=== PATIENT | female | born 1985 | race Caucasian/White ===

== ENCOUNTER → 2019-02-13 | Outpatient (CLI) | payer OTHER | LOC: COL.RAD 09:45 | DX: G35 Multiple sclerosis (principal); G25.81 Restless legs syndrome; D64.9 Anemia, unspecified | CPT/HCPCS: A9585 ==

== ENCOUNTER → 2019-02-14 | Outpatient (CLI) | payer OTHER | LOC: COL.RAD 09:45 | DX: G35 Multiple sclerosis (principal); G25.81 Restless legs syndrome; D64.9 Anemia, unspecified; R39.15 Urgency of urination; R53.83 Other fatigue | CPT/HCPCS: A9585 ==

== ENCOUNTER → 2019-11-29 | Outpatient (CLI) | payer OTHER | LOC: COL.RAD 11-19 09:00 | DX: G35 Multiple sclerosis (principal); F32.9 Major depressive disorder, single episode, unspecified | CPT/HCPCS: A9585 ==

== ENCOUNTER → 2021-05-13 | Outpatient (CLI) | payer OTHER | LOC: COL.RAD 13:10 | DX: M47.812 Spondylosis without myelopathy or radiculopathy, cervical region (principal); G35 Multiple sclerosis; G25.81 Restless legs syndrome; E61.1 Iron deficiency; E53.8 Deficiency of other specified B group vitamins; M40.50 Lordosis, unspecified, site unspecified; J34.89 Other specified disorders of nose and nasal sinuses | CPT/HCPCS: A9575 ==

== ENCOUNTER → 2021-05-14 | Outpatient (CLI) | payer OTHER | LOC: COL.RAD 12:56 | DX: G95.89 Other specified diseases of spinal cord (principal); M89.38 Hypertrophy of bone, other site; G35 Multiple sclerosis; R53.83 Other fatigue; G25.81 Restless legs syndrome; E61.1 Iron deficiency; E53.8 Deficiency of other specified B group vitamins | CPT/HCPCS: A9575 ==